=== PATIENT | male | born 1960 | race Caucasian/White ===

== ENCOUNTER 2016-05-21 09:43 | Emergency (ER) | payer BC, OTHER ==
[~2016-05-21 09:43] MED LIST: Ecotrin PO; Feosol PO; Paxil PO; PriLOSEC PO; Senokot S,Pericolace PO; Toprol XL PO; Vicodin,Norco 5/325 PO; celeBREX PO
== END 2016-05-21 10:35 | disposition left against medical advice (07) ==
LOC: EME 09:43
DX: R10.9 Unspecified abdominal pain (principal); Z53.21 Procedure and treatment not carried out due to patient leaving prior to being seen by health care provider
CPT/HCPCS: 80048; 85027; 87502

== ENCOUNTER → 2016-06-20 | Outpatient (CLI) | payer BC | END | disposition home or self-care (01) | LOC: CDC 15:10 | DX: Z01.810 Encounter for preprocedural cardiovascular examination (principal); D17.1 Benign lipomatous neoplasm of skin and subcutaneous tissue of trunk | CPT/HCPCS: 93000 ==